=== PATIENT | female | born 1980 | race Caucasian/White ===

== ENCOUNTER 2024-02-22 14:31 | Emergency (ER) | payer SELFPAY ==
[~2024-02-22] VITALS: Ht 167.6 cm; Wt 72.1 kg
[2024-02-22 14:31] VITALS: BP 117/81; PULSE 110; RESP 18; TEMP 97.7; O2SAT 91
[2024-02-22 15:00] LABS: BASOPHIL # 0.1 10^3/uL (0.0-0.1); BASOPHIL % 0.7 % (0.0-0.2); HEMATOCRIT(ML) 33.1 % (36.0-46.0); HEMOGLOBIN 10.5 g/dL (12.0-15.0); LYMPHOCYTES # 0.31 10^3/uL1 (1.0-4.8); LYMPHOCYTES % 4.2 % (24.0-44.0); MEAN CORP HGB 36.1 pg (26-34); MEAN CORP HGB CONCENTRATION 31.7 g/dL (33-36.5); MEAN CORP VOLUME 113.7 fL (78-100); MONOCYTES # 1.7 10^3/uL (0.3-0.8); MONOCYTES % 23.3 % (5.0-12.0); NEUTROPHIL # 5.3 10^3/uL (1.8-7.7); NEUTROPHILS % 71.5 % (41.0-85.0); PLATELET COUNT 111 10^3/uL (150-400); RED BLOOD CELL 2.91 10^6/uL (4.00-5.20); RED CELL DISTRIBUTION WIDTH 13.9 % (11.5-14.5); WHITE BLOOD CELL 7.4 10^3/uL (4.5-11.0)
[2024-02-22 15:03] LABS: +ADD MANUAL DIFF(NO CHRG) NO
[2024-02-22 15:13] LABS: ALBUMIN/GLOBULIN RATIO 1.052; ANION GAP 37.6; BUN/CREATININE RATIO 30.6 (10.0-20.0); CALCIUM 8.6 mg/dL (8.4-10.5); CREATININE SERUM 1.83 mg/dL (0.59-1.40); EST GFR, NON-AA 30.4 (>/=60); POTASSIUM 2.6 mmol/L (3.6-5.2)
[2024-02-22] MEDS ORDERED: ATIVAN ONE ×2 (15:39→16:34)
[2024-02-22 15:40] LABS: ABG OX -sO2 97.8 % (94.0-97.00); ABG PCO2 10.9 mmHg (35.0-45.0); ABG PH 7.098 (7.350-7.450); BE(B) -24.1 mmol/L (-2.0-2.0); HCO3act 3.3 mmol/L (22.0-26.0); pO2 129.2 mmHg (80.0-100.0)
[2024-02-22] MEDS: NS 1000ML 1,000 ML IV STA (15:43)
[2024-02-22] MEDS: ATIVAN IV STA ×2 (15:43→16:45)
[2024-02-22] MEDS ORDERED: NS 1000ML 1,000 ML ONE (15:44)
[2024-02-22 15:53] VITALS: BP 113/58; PULSE 100; RESP 18; TEMP 97.7; O2SAT 91
[2024-02-22] MEDS: HNS 1000ML/KCL 20MEQ 1,000 ML IV STA (16:11)
[2024-02-22] MEDS ORDERED: HNS 1000ML/KCL 20MEQ 1,000 ML ONE (16:11)
[2024-02-22] MEDS: SODIUM BICARBONATE IV STA (16:17)
[2024-02-22] MEDS ORDERED: SODIUM BICARBONATE IV ONE (16:17)
[2024-02-22 16:22] VITALS: BP 112/70; PULSE 96; RESP 18; TEMP 97.7; O2SAT 96
== END 2024-02-22 16:52 | disposition short-term general hospital (02) ==
LOC: ER 14:31
DX: T17.908A Unspecified foreign body in respiratory tract, part unspecified causing other injury, initial encounter (principal); K70.40 Alcoholic hepatic failure without coma; E87.20 Acidosis, unspecified; N17.9 Acute kidney failure, unspecified; E87.6 Hypokalemia; E86.0 Dehydration; W44.9XXA Unspecified foreign body entering into or through a natural orifice, initial encounter; Y93.89 Activity, other specified; Y92.89 Other specified places as the place of occurrence of the external cause; Y99.8 Other external cause status
CPT/HCPCS: 99291; 96374; 96361; 96375; 96376; 71045; 80053; 85025; 36415; 82077; 93005; 82803; 36600; J3480; J7030; J2060 ×2; J3490; 80299; 80307; 84703